=== PATIENT | male | born 1990 | race Caucasian/White ===

== ENCOUNTER 2016-07-23 00:56 | Emergency (ER) | payer MEDICAID ==
[~2016-07-23] VITALS: Ht 175.3 cm; Wt 123.0 kg
[~2016-07-23 00:56] MED LIST: COLC0.6T6 PO; IBUP-1542 PO; ULT50 PO
[2016-07-23 01:05] VITALS: Ht 175.3 cm; Wt 123.0 kg
[2016-07-23] MEDS ORDERED: KETOROLAC 30 MG INJ IM STA (04:17)
--- NOTE | 2016-07-23 04:53 | RADRPT ---
PROCEDURE: XR Ankle. CLINICAL INDICATION: Pain, swelling TECHNIQUE: Three views of the right ankle are available for review. COMPARISON: None available FINDINGS: There is lateral soft tissue swelling. No fracture or dislocation is seen IMPRESSION: Lateral soft tissue swelling. No fracture seen. RPTAT: HJES .Ricardo Drake MD, Date Time Electronically viewed and signed by .Ricardo Drake MD, on 07/23/2016 04:52 .S/
--- NOTE | 2016-07-23 05:04 | ERD ---
ER Documentation Chief Complaint Date/Time DATE: 07/23/16 TIME: 05:02 Chief Complaint r ankle pain for past 3 weeks HPI This is 25-year-old male who presented to the emergency department today complaining of right ankle pain for the past several weeks. Patient states he was seen in this clinic 1-2 weeks ago and was given Motrin but has not helped. States he has some pain and swelling. Denies any fevers or chills. ROS All systems reviewed and are negative except as per history of present illness. Medications Home Meds Active Scripts Colchicine* (Colcrys*) 0.6 Mg Tablet, 0.6 MG PO BID for 3 Days, TAB Prov:CARLOZ MELCHOR PA-C 07/23/16 Indomethacin* (Indocin*) 25 Mg Capsule, 25 MG PO Q6, #20 CAP Prov:CARLOZ MELCHOR PA-C 07/23/16 Tramadol HCl (Tramadol HCl) 50 Mg Tablet, 50 MG PO Q6 Y for PAIN, #20 TAB Prov:GARRISON VALENCIA NP 06/29/16 Ibuprofen* (Motrin*) 600 Mg Tab, 600 MG PO Q6H Y for PAIN AND OR ELEVATED TEMP, #30 TAB Prov:GARRISON VALENCIA NP 06/29/16 Colchicine* (Colcrys*) 0.6 Mg Tablet, 0.6 MG PO ONCE, #3 TAB Take 2 tabs (total of 1.2 mg) then 1 hour later, take 1 tab (0.6 mg) 2 fichas (total de 1.2 mg) luego 1 hora m monique stevens 1 tab (0.6 mg) Prov:SHANON RAMOS PA-C 02/07/16 Allergies Allergies: Coded Allergies: No Known Allergy (Unverified , 06/29/16) PMhx/Soc History of Surgery: No Anesthesia Reaction: No Hx Neurological Disorder: No Hx Respiratory Disorders: No Hx Cardiac Disorders: No Hx Psychiatric Problems: No Hx Miscellaneous Medical Probl: No Hx Alcohol Use: No Hx Substance Use: No Hx Tobacco Use: No Physical Exam Vitals Vital Signs Date Time Temp Pulse Resp B/P Pulse Ox O2 Delivery O2 Flow Rate FiO2 07/23/16 01:05 98.4 92 18 157/90 97 Physical Exam Const: NAD Head: Atraumatic Eyes: Normal Conjunctiva ENT: Normal External Ears, Nose and Mouth. Neck: Full range of motion..~ No meningismus. Resp: Clear to auscultation bilaterally Cardio: Regular rate and rhythm, no murmurs Abd: Soft, non tender, non distended. Normal bowel sounds Skin: No petechiae or rashes Back: No midline or flank tenderness MSK: Right ankle with no obvious deformity. Mild effusion laterally over lateral malleolus. Tenderness to palpation under lateral malleolus. Mild erythema. No warmth. Pain with active range of motion. Pulses 2+. Distal neurovascularly intact. Neur: Awake and alert Psych: Normal Mood and Affect Results 24 hrs Current Medications Medications (Trade) Dose Ordered Sig/Janelle Route PRN Reason Start Time Stop Time Status Last Admin Dose Admin Ketorolac Tromethamine (Toradol) 30 mg ONCE STAT IM 07/23/16 04:17 07/23/16 04:18 DC 07/23/16 04:32 Patient: JAGJIT BURGESS : 1990 Age: 25 Sex: M MR #: [id number] DOS: 07/23/16 0000 Ordering MD: ACRLOZ MELCHOR PA-C Location: [facility] Room/Bed: PROCEDURE: XR Ankle. CLINICAL INDICATION: Pain, swelling TECHNIQUE: Three views of the right ankle are available for review. COMPARISON: None available FINDINGS: There is lateral soft tissue swelling. No fracture or dislocation is seen IMPRESSION: Lateral soft tissue swelling. No fracture seen. RPTAT: HJES .Ricardo Drake MD, MD Date Time Electronically viewed and signed by .Ricardo Drake MD, MD on 07/23/2016 04:52 .S/ CC: CARLOZ MELCHOR PA-C Procedures/MDM This is a 25-year-old male who presents to the emergency department today complaining of ankle pain for the past several weeks. On physical exam patient does have some erythema and swelling over the lateral to his ankle joint. Patient was seen here a couple weeks ago for similar complaints and was given Motrin for home and diagnosed with a sprain. I did obtain images on patient's visit today. Per the radiology report is of the right ankle are unremarkable. There is some lateral soft tissue swelling. No Evidence of acute fracture, dislocation. His is afebrile and otherwise well-appearing. Low suspicion for osteomyelitis or septic joint. Patient does have pain with ambulation however he declined crutches here in the emergency department. Patient may have a gout attack as patient has had knee pain with uncertain cause etiology as well. Do not feel the patient requires laboratory work at this time Patient was given Toradol here in the emergency department. He was given a prescription for indomethacin and colchicine started to follow-up with the primary care physician for possible referral to orthopedics. At this time the patient is stable for discharge and outpatient management. Patient should follow up with their PCP in the next 1-2 days. They may return to the emergency department sooner for any persistent or worsening of symptoms. Patient understood and agreed with the plan. Departure Diagnosis: Primary Impression: Ankle pain Laterality: right Chronicity: unspecified Qualified Code: M25.571 - Right ankle pain, unspecified chronicity Condition: CARLOZ Dejesus PA-C Jul 23, 2016 05:04
[2016-07-23] MEDS ORDERED: INDO25CA25 PO (05:06)
[2016-07-23] MEDS ORDERED: COLC0.6T6 PO (05:07)
[2016-07-23 05:42] VITALS: BP 135/83; PULSE 79; RESP 18; TEMP 97.2
== END 2016-07-23 05:42 | disposition home or self-care (01) ==
LOC: FTE 00:56
DX: M25.571 Pain in right ankle and joints of right foot (principal)
CPT/HCPCS: 73610; 96372; J1885; Z7502

== ENCOUNTER 2018-12-31 19:34 | Emergency (ER) | payer MEDICAID ==
[~2018-12-31] VITALS: Ht 157.5 cm; Wt 98.9 kg
[~2018-12-31 19:34] MED LIST changes: +INDO25CA16 PO; +TRAM50TA2 PO; -ULT50 PO
[2018-12-31 19:36] VITALS: Ht 157.5 cm; Wt 98.9 kg
[2018-12-31] MEDS ORDERED: KETOROLAC 60 MG INJ IM STA (20:35)
--- NOTE | 2018-12-31 20:42 | ERD ---
ER Documentation Chief Complaint Chief Complaint C/O LT KNEE PAIN AND SWELLING SINCE YESTERDAY, DENIES INJURY HPI Patient is a 28 years old male with PMHx of gout presenting to the clinic for sever left knee pain and swelling x 3 days. Patient denies injury, trauma, high protein diet, or alcohol consumption. Patient states that he avoids meat and alcohol. Patient admits to taking OTC ibuprofen without resolution. Patient cannot tell if this is like his previous gout attack. ROS All systems reviewed and are negative except as per history of present illness. Medications Home Meds Active Scripts Methylprednisolone* (Medrol* DOSE PACK) 4 Mg/Dose-Pack Tab.ds.pk, 4 MG PO . DIRECTED for 5 Days, PACKET Prov:YRIS BIGGS PA-C 12/31/18 Indomethacin* (Indocin*) 50 Mg Cap, 50 MG PO TID for 5 Days, CAP Prov:YRIS BIGGS PA-C 12/31/18 Colchicine* (Colcrys*) 0.6 Mg Tablet, 0.6 MG PO 2 tabs initially for 2 tablets initially & in 1 hr for 1 Day, #3 TAB Prov:YRIS BIGGS PA-C 12/31/18 Colchicine* (Colcrys*) 0.6 Mg Tablet, 0.6 MG PO BID for 3 Days, TAB Prov:CARLOZ MELCHOR PA-C 07/23/16 Indomethacin* (Indocin*) 25 Mg Capsule, 25 MG PO Q6, #20 CAP Prov:CARLOZ MELCHOR PA-C 07/23/16 Tramadol HCl (Tramadol HCl) 50 Mg Tablet, 50 MG PO Q6 PRN for PAIN, #20 TAB Prov:GARRISON VALENCIA NP 06/29/16 Ibuprofen* (Motrin*) 600 Mg Tab, 600 MG PO Q6H PRN for PAIN AND OR ELEVATED TEMP, #30 TAB Prov:GARRISON VALENCIA NP 06/29/16 Colchicine* (Colcrys*) 0.6 Mg Tablet, 0.6 MG PO ONCE, #3 TAB Take 2 tabs (total of 1.2 mg) then 1 hour later, take 1 tab (0.6 mg) 2 fichas (total de 1.2 mg) luego 1 hora ms tarde, monique 1 tab (0.6 mg) Prov:RACHELSHANON Grace BALTAZAR 02/07/16 Allergies Allergies: Coded Allergies: No Known Allergy (Unverified , 06/29/16) PMhx/Soc History of Surgery: No Anesthesia Reaction: No Hx Neurological Disorder: No Hx Respiratory Disorders: No Hx Cardiac Disorders: No Hx Psychiatric Problems: No Hx Miscellaneous Medical Probl: Yes (GOUT) Hx Alcohol Use: No Hx Substance Use: No Hx Tobacco Use: No Smoking Status: Never smoker Physical Exam Vitals Vital Signs Date Temp Pulse Resp B/P (MAP) Pulse Ox O2 O2 Flow FiO2 Time Delivery Rate 12/31/18 98.4 71 18 134/80 99 Room Air 23:18 (98) 12/31/18 97.4 87 19 143/80 99 19:36 (101) Physical Exam Const: No acute distress Head: Atraumatic Eyes: Normal Conjunctiva Resp: Clear to auscultation bilaterally Cardio: Regular rate and rhythm, no murmurs Neur: Awake and alert Psych: Normal Mood and Affect Left Knee Exam: Tenderness to palpation of anterior knee with mild swelling. No crepitus, no fluctuance. Difficulty flexion due to pain. Mild warm to touch. Result Diagram: 12/31/182041 Results 24 hrs Laboratory Tests Test 12/31/18 20:42 White Blood Count 9.6 10^3/ul Red Blood Count 4.92 10^6/ul Hemoglobin 15.6 g/dl Hematocrit 46.0 % Mean Corpuscular Volume 93.5 fl Mean Corpuscular Hemoglobin 31.7 pg Mean Corpuscular Hemoglobin Concent 33.9 g/dl Red Cell Distribution Width 11.6 % Platelet Count 191 10^3/UL Mean Platelet Volume 10.5 fl Immature Granulocytes % 0.200 % Neutrophils % 55.2 % Lymphocytes % 34.2 % Monocytes % 8.3 % Eosinophils % 1.6 % Basophils % 0.5 % Nucleated Red Blood Cells % 0.0 /100WBC Immature Granulocytes # 0.020 10^3/ul Neutrophils # 5.3 10^3/ul Lymphocytes # 3.3 10^3/ul Monocytes # 0.8 10^3/ul Eosinophils # 0.2 10^3/ul Basophils # 0.1 10^3/ul Nucleated Red Blood Cells # 0.0 10^3/ul Uric Acid 8.0 mg/dl Current Medications Medications Dose Sig/Janelle Start Time Status Last (Trade) Ordered Route PRN Stop Time Admin Dose Reason Admin Ketorolac 60 mg ONCE STAT 12/31/18 DC 12/31/18 Tromethamine IM 20:35 20:46 (Toradol) 12/31/18 20:38 10 mg ONCE ONCE 12/31/18 DC 12/31/18 Dexamethasone IM 22:00 22:08 (Decadron) 12/31/18 22:01 Procedures/MDM Patient was seen and evaluated for left knee pain. CBC is grossly unremarkable. Uric Acid is 8.0, signifying acute gout attack. Left knee X-Ray is grossly unremarkable with some mild joint effusion. Patient is stable and ready for discharge. Patient was advised to f/u with PCP. Departure Diagnosis: Primary Impression: Gout attack Gout site: knee Gout etiology: unspecified cause Laterality: left Qualified Codes: M10.9 - Gout, unspecified Condition: Stable Patient Instructions: Eating to Prevent Gout, Gout Diet, Treating Gout Attacks Referrals: [facility] Additional Instructions: Patient advised to return to the ED immediately for new or worsening symptoms. Patient advised to follow up with primary care provider in the next 24-48 hours. Patient verbalized understanding and agrees with treatment plan and course of a ction. If patient has no primary care they may follow up with [facility] [address] [place] [address] or [facility] [address] [place] [address] or [facility] [address] [place] [address] YRIS BIGGS PA-C Dec 31, 2018 20:42
[2018-12-31] MEDS ORDERED: INDO-39 PO (21:41)
[2018-12-31] MEDS ORDERED: COLC0.6T6 PO (21:41)
[2018-12-31] MEDS ORDERED: DEXAMETHASONE 10 MG/ML 1 ML INJ IM ONE (22:00)
[2018-12-31] MEDS ORDERED: MED4DP PO (22:16)
[2018-12-31 23:18] VITALS: BP 134/80; PULSE 71; RESP 18
== END 2018-12-31 23:18 | disposition home or self-care (01) ==
LOC: FTE 19:34
DX: M10.9 Gout, unspecified (principal)
CPT/HCPCS: 36415; 73562; 84560; 85025; 96372; J1100; J1885; Z7502

== ENCOUNTER 2019-01-09 19:00 | Emergency (ER) | payer MEDICAID ==
[~2019-01-09] VITALS: Ht 167.6 cm; Wt 96.0 kg
[~2019-01-09 19:00] MED LIST changes: +INDO-39 PO; +MED4DP PO
[2019-01-09 19:02] VITALS: Ht 167.6 cm; Wt 96.0 kg
[2019-01-09] MEDS ORDERED: KETOROLAC 30 MG INJ IM STA (19:54)
[2019-01-09] MEDS ORDERED: DEXAMETHASONE 10 MG/ML 1 ML INJ IM ONE (20:00)
[2019-01-09] MEDS ORDERED: ACET-141 PO (20:54)
[2019-01-09] MEDS ORDERED: IBUP-1542 PO (20:54)
[2019-01-09] MEDS ORDERED: MED4DP PO (20:54)
[2019-01-09] MEDS ORDERED: ALLO100T PO (20:54)
[2019-01-09] MEDS ORDERED: PRED20TA PO (20:54)
--- NOTE | 2019-01-09 21:00 | ERD ---
ER Documentation Chief Complaint Chief Complaint left knee pain x 2 weeks. denies trauma. hx of gout ROS All systems reviewed and are negative except as per history of present illness. Medications Home Meds Active Scripts Acetaminophen* (Acetaminophen*) 500 MG Extra Strength Tablet, 500 MG PO Q4H PRN for PAIN AND OR ELEVATED TEMP, #30 TAB Prov:ORTEGA BUCIO DO 01/09/19 Ibuprofen* (Motrin*) 600 Mg Tab, 600 MG PO Q6H PRN for PAIN AND OR ELEVATED TEMP, #30 TAB Prov:ORTEGA BUCIO DO 01/09/19 Methylprednisolone* (Medrol* DOSE PACK) 4 Mg/Dose-Pack Tab.ds.pk, 4 MG PO . DIRECTED for gout, #1 PACKET Prov:ORTEGA BUCIO DO 01/09/19 Prednisone (Prednisone) 20 Mg Tab, 40 MG PO DAILY for gout attack for 5 Days, #10 TAB Prov:ORTEGA BUCIO DO 01/09/19 Prednisone (Prednisone) 20 Mg Tab, 20 MG PO DAILY for gout attack for 5 Days, #5 TAB Prov:ORTEGA BUCIO DO 01/09/19 Allopurinol* (Allopurinol*) 100 Mg Tablet, 100 MG PO DAILY for gout, #30 TAB Prov:ORTEGA BUCIO DO 01/09/19 Methylprednisolone* (Medrol* DOSE PACK) 4 Mg/Dose-Pack Tab.ds.pk, 4 MG PO . DIRECTED for 5 Days, PACKET Prov:YRIS BIGGS PA-C 12/31/18 Indomethacin* (Indocin*) 50 Mg Cap, 50 MG PO TID for 5 Days, CAP Prov:YRIS BIGGS PA-C 12/31/18 Colchicine* (Colcrys*) 0.6 Mg Tablet, 0.6 MG PO 2 tabs initially for 2 tablets initially & in 1 hr for 1 Day, #3 TAB Prov:YRIS BIGGSC 12/31/18 Colchicine* (Colcrys*) 0.6 Mg Tablet, 0.6 MG PO BID for 3 Days, TAB Prov:CARLOZ MELCHOR PA-C 07/23/16 Indomethacin* (Indocin*) 25 Mg Capsule, 25 MG PO Q6, #20 CAP Prov:CARLOZ MELCHOR PA-C 07/23/16 Tramadol HCl (Tramadol HCl) 50 Mg Tablet, 50 MG PO Q6 PRN for PAIN, #20 TAB Prov:GARRISON VALENCIAKaron FORESTRY TREE PRUNER 06/29/16 Ibuprofen* (Motrin*) 600 Mg Tab, 600 MG PO Q6H PRN for PAIN AND OR ELEVATED TEMP, #30 TAB Prov:GARRISON VALENCIAKaron FORESTRY TREE PRUNER 06/29/16 Colchicine* (Colcrys*) 0.6 Mg Tablet, 0.6 MG PO ONCE, #3 TAB Take 2 tabs (total of 1.2 mg) then 1 hour later, take 1 tab (0.6 mg) 2 fichas (total de 1.2 mg) luego 1 hora ms tarde, monique 1 tab (0.6 mg) Prov:SHANON RAMOS PA-C 02/07/16 Allergies Allergies: Coded Allergies: No Known Allergy (Unverified , 06/29/16) PMhx/Soc Medical and Surgical Hx: pt denies Medical Hx, pt denies Surgical Hx History of Surgery: No Anesthesia Reaction: No Hx Neurological Disorder: No Hx Respiratory Disorders: No Hx Cardiac Disorders: No Hx Psychiatric Problems: No Hx Miscellaneous Medical Probl: Yes (GOUT) Hx Alcohol Use: No Hx Substance Use: No Hx Tobacco Use: No Smoking Status: Never smoker Physical Exam Vitals Vital Signs Date Temp Pulse Resp B/P (MAP) Pulse Ox O2 O2 Flow FiO2 Time Delivery Rate 01/09/19 97.2 98 18 137/98 97 19:02 (111) Physical Exam Const: No acute distress Head: Atraumatic Eyes: Normal Conjunctiva ENT: Normal External Ears, Nose and Mouth. Neck: Full range of motion. No meningismus. Resp: Clear to auscultation bilaterally Cardio: Regular rate and rhythm, no murmurs Abd: Soft, non tender, non distended. Normal bowel sounds Skin: No petechiae or rashes Back: No midline or flank tenderness Ext: No cyanosis, or edema Neur: Awake and alert Psych: Normal Mood and Affect Results 24 hrs Current Medications Medications Dose Sig/Janelle Start Time Status Last (Trade) Ordered Route PRN Stop Time Admin Dose Reason Admin 10 mg ONCE ONCE 01/09/19 DC 01/09/19 Dexamethasone IM 20:00 20:00 (Decadron) 01/09/19 20:01 Ketorolac 30 mg ONCE STAT 01/09/19 DC 01/09/19 Tromethamine IM 19:54 20:00 (Toradol) 01/09/19 19:55 Departure Diagnosis: Primary Impression: Gout attack Condition: Fair Patient Instructions: Treating Gout Attacks, Gout Diet Referrals: [facility] YOU HAVE RECEIVED A MEDICAL SCREENING EXAM AND THE RESULTS INDICATE THAT YOU DO NOT HAVE A CONDITION THAT REQUIRES URGENT TREATMENT IN THE EMERGENCY DEPARTMENT. FURTHER EVALUATION AND TREATMENT OF YOUR CONDITION CAN WAIT UNTIL YOU ARE SEEN IN YOUR DOCTORS OFFICE WITHIN THE NEXT 1-2 DAYS. IT IS YOUR RESPONSIBILITY TO MAKE AN APPOINTMENT FOR FOLOW-UP CARE. IF YOU HAVE A PRIMARY DOCTOR --you should call your primary doctor and schedule an appointment IF YOU DO NOT HAVE A PRIMARY DOCTOR YOU CAN CALL OUR PHYSICIAN REFERRAL HOTLINE AT IF YOU CAN NOT AFFORD TO SEE A PHYSICIAN YOU CAN CHOSE FROM THE FOLLOWING [facility] [email or web address] [facility] [email or web address] [facility] [address] [facility] [address] [facility] [address] [facility] [facility]. [address] Additional Instructions: Llame al doctor MAANA y sue roque JOVANNY PARA DENTRO DE 1-2 THOMAS.Dgale a la secretaria que nosotros le instruimos hacer esta jovanny.Avise o llame si freeman condicin se empeora antes de la jovanny. Regresa aqui si peor o no mejor. ORTEGA BUCIO DO Jan 09, 2019 21:00
[2019-01-09 21:08] VITALS: BP 130/81; PULSE 84; RESP 16
== END 2019-01-09 21:08 | disposition home or self-care (01) ==
LOC: FTE 19:00
DX: M10.9 Gout, unspecified (principal)
CPT/HCPCS: 96372; J1100; J1885; Z7502

== ENCOUNTER 2019-02-18 21:35 | Emergency (ER) | payer MEDICAID ==
[~2019-02-18] VITALS: Ht 175.3 cm; Wt 96.6 kg
[~2019-02-18 21:35] MED LIST changes: +ACET-141 PO; +ALLO100T PO; +PRED20TA PO
[2019-02-18 21:38] VITALS: BP 146/60; PULSE 78; RESP 16; Ht 175.3 cm; Wt 96.6 kg
[2019-02-18] MEDS ORDERED: KETOROLAC 60 MG INJ IM STA (22:14)
--- NOTE | 2019-02-18 22:14 | ERD ---
ER Documentation Chief Complaint Chief Complaint RIGHT FOOT PAIN/SWELLING X TODAY. HPI Patient is a 28 years old male presenting to the clinic for right ankle pain and swelling since earlier today. Patient denies any recent injury or trauma but reports pain worsen with walking. Patient reports similar symptoms 1 month ago and was diagnosed with gout. Patient reports changing his diet post diagnosis and denies alcohol. Patient admits to PCP but has no appointment as of now. Patient reports that he is currently on Allopurinol. ROS All systems reviewed and are negative except as per history of present illness. Medications Home Meds Active Scripts Indomethacin* (Indocin*) 50 Mg Cap, 50 MG PO TID for 5 Days, #15 CAP Prov:YRIS BIGGS-Charlie 02/18/19 Colchicine* (Colcrys*) 0.6 Mg Tablet, 0.6 MG PO every hour, #6 TAB Prov:YRIS BIGGS PA-C 02/18/19 Acetaminophen* (Acetaminophen*) 500 MG Extra Strength Tablet, 500 MG PO Q4H PRN for PAIN AND OR ELEVATED TEMP, #30 TAB Prov:RUPINDERORTEGA 01/09/19 Ibuprofen* (Motrin*) 600 Mg Tab, 600 MG PO Q6H PRN for PAIN AND OR ELEVATED TEMP, #30 TAB Prov:BUCIOORTEGA 01/09/19 Methylprednisolone* (Medrol* DOSE PACK) 4 Mg/Dose-Pack Tab.ds.pk, 4 MG PO . DIRECTED for gout, #1 PACKET Prov:RUPINDERORTEGA 01/09/19 Prednisone (Prednisone) 20 Mg Tab, 40 MG PO DAILY for gout attack for 5 Days, #10 TAB Prov:ORTEGA BUCIO 01/09/19 Prednisone (Prednisone) 20 Mg Tab, 20 MG PO DAILY for gout attack for 5 Days, #5 TAB Prov:BUCIOORTEGA 01/09/19 Allopurinol* (Allopurinol*) 100 Mg Tablet, 100 MG PO DAILY for gout, #30 TAB Prov:ORTEGA BUCIO 01/09/19 Methylprednisolone* (Medrol* DOSE PACK) 4 Mg/Dose-Pack Tab.ds.pk, 4 MG PO . DIRECTED for 5 Days, PACKET Prov:RYIS BIGGS PA-C 12/31/18 Indomethacin* (Indocin*) 50 Mg Cap, 50 MG PO TID for 5 Days, CAP Prov:YRIS BIGGS-C 12/31/18 Colchicine* (Colcrys*) 0.6 Mg Tablet, 0.6 MG PO 2 tabs initially for 2 tablets initially & in 1 hr for 1 Day, #3 TAB Prov:DIANYRIS BALTAZAR 12/31/18 Colchicine* (Colcrys*) 0.6 Mg Tablet, 0.6 MG PO BID for 3 Days, TAB Prov:CARLOZ MELCHOR PA-C 07/23/16 Indomethacin* (Indocin*) 25 Mg Capsule, 25 MG PO Q6, #20 CAP Prov:CARLOZ MELCHOR PA-C 07/23/16 Tramadol HCl (Tramadol HCl) 50 Mg Tablet, 50 MG PO Q6 PRN for PAIN, #20 TAB Prov:GARRISON VALENCIA NP 06/29/16 Ibuprofen* (Motrin*) 600 Mg Tab, 600 MG PO Q6H PRN for PAIN AND OR ELEVATED TEMP, #30 TAB Prov:GARRISON VALENCIA NP 06/29/16 Colchicine* (Colcrys*) 0.6 Mg Tablet, 0.6 MG PO ONCE, #3 TAB Take 2 tabs (total of 1.2 mg) then 1 hour later, take 1 tab (0.6 mg) 2 fichas (total de 1.2 mg) luego 1 hora ms tarde, monique 1 tab (0.6 mg) Prov:SHANON RAMOS PA-C 02/07/16 Allergies Allergies: Coded Allergies: No Known Allergy (Unverified , 06/29/16) PMhx/Soc Medical and Surgical Hx: pt denies Surgical Hx History of Surgery: No Anesthesia Reaction: No Hx Neurological Disorder: No Hx Respiratory Disorders: No Hx Cardiac Disorders: No Hx Psychiatric Problems: No Hx Miscellaneous Medical Probl: Yes (GOUT) Hx Alcohol Use: No Hx Substance Use: No Hx Tobacco Use: No Smoking Status: Never smoker Physical Exam Vitals Vital Signs Date Temp Pulse Resp B/P (MAP) Pulse Ox O2 O2 Flow FiO2 Time Delivery Rate 02/18/19 98.4 78 16 146/60 97 21:38 (88) Physical Exam Const: No acute distress Head: Atraumatic Resp: Clear to auscultation bilaterally Cardio: Regular rate and rhythm, no murmurs Psych: Normal Mood and Affect Right Ankle Exam: Warm to touch with mild tenderness. Mild swelling. No crepitus. Result Diagram: 02/18/192232 Results 24 hrs Laboratory Tests Test 02/18/19 22:33 White Blood Count 8.3 10^3/ul Red Blood Count 4.67 10^6/ul Hemoglobin 14.8 g/dl Hematocrit 43.8 % Mean Corpuscular Volume 93.8 fl Mean Corpuscular Hemoglobin 31.7 pg Mean Corpuscular Hemoglobin Concent 33.8 g/dl Red Cell Distribution Width 12.0 % Platelet Count 202 10^3/UL Mean Platelet Volume 10.3 fl Immature Granulocytes % 0.200 % Neutrophils % 57.3 % Lymphocytes % 32.8 % Monocytes % 7.9 % Eosinophils % 1.4 % Basophils % 0.4 % Nucleated Red Blood Cells % 0.0 /100WBC Immature Granulocytes # 0.020 10^3/ul Neutrophils # 4.8 10^3/ul Lymphocytes # 2.7 10^3/ul Monocytes # 0.7 10^3/ul Eosinophils # 0.1 10^3/ul Basophils # 0.0 10^3/ul Nucleated Red Blood Cells # 0.0 10^3/ul Uric Acid 8.2 mg/dl Current Medications Medications Dose Sig/Janelle Start Time Status Last (Trade) Ordered Route PRN Stop Time Admin Dose Reason Admin Ketorolac 60 mg ONCE STAT 02/18/19 DC 02/18/19 Tromethamine IM 22:14 02/18/19 22:22 (Toradol) 22:17 125 mg ONCE ONCE 02/18/19 DC 02/18/19 Methylprednis IM 22:30 02/18/19 22:22 olone Sodium 22:31 Succinate (Solu-Medrol) Procedures/MDM Patient was seen and evaluated for right ankle pain/swelling. Toradol and Solu-Medrol administered in ED. CBC and urinalysis revealed hyperuricemia of 8.2 otherwise unremarkable. Low suspicion for septic arthritis and fracture. Patient stable ready for discharge. Follow-up with PCP. Patient will be discha rged with colchicine and indomethacin. Departure Diagnosis: Primary Impression: Gout attack Gout site: ankle Gout etiology: unspecified cause Laterality: right Qualified Codes: M10.9 - Gout, unspecified Condition: Stable Patient Instructions: Treating Gout Attacks Referrals: [facility] Additional Instructions: Paciente aconseja volver a Departamento de urgencias inmediatamente para sntomas nuevos o que empeoran . Paciente aconseja posteriores con el PCP en 2-3 campbell . Paciente verbaliza la comprehensin y est de acuerdo con el tratamiento y el curso de accin. Si el paciente no tiene ninguna de atencin primaria pueden seguir con [facility] [address] [place] [address] o [facility] + [address] [address] YRIS BIGGS PA-C Feb 18, 2019 22:14
[2019-02-18] MEDS ORDERED: METHYLPREDNISOLONE 125 MG INJ IM ONE (22:30)
== END 2019-02-18 23:40 | disposition home or self-care (01) ==
LOC: FTE 21:35
DX: M10.9 Gout, unspecified (principal)
CPT/HCPCS: 36415; 84560; 85025; 96372; J1885; J2930; Z7502

== ENCOUNTER 2019-03-24 22:20 | Emergency (ER) | payer MEDICAID ==
[~2019-03-24] VITALS: Ht 154.9 cm; Wt 98.8 kg
[2019-03-24 22:31] VITALS: BP 138/63; PULSE 67; RESP 19; Ht 154.9 cm; Wt 98.8 kg
[2019-03-24] MEDS ORDERED: METHYLPREDNISOLONE 125 MG INJ IM ONE (23:00)
[2019-03-24] MEDS ORDERED: KETOROLAC 30 MG INJ IM STA (23:00)
== END 2019-03-24 23:21 | disposition home or self-care (01) ==
LOC: FTE 22:20
DX: M10.9 Gout, unspecified (principal)
CPT/HCPCS: 96372; J1885; J2930; Z7502